=== PATIENT | female | born 1990 | race African-American/Black ===

== ENCOUNTER 2017-05-31 08:12 | Emergency (ER) | payer MEDICAID ==
[~2017-05-31] VITALS: Ht 167.6 cm; Wt 93.4 kg
[2017-05-31 08:26] VITALS: BP 152/98
[2017-05-31] MEDS ORDERED: cefTRIAXone SOD 1,000 MG VL IM ONE (08:45)
[2017-05-31 09:55] LABS: Vaginal RBC Rare; Vaginal Trichomonas Not Present; Vaginal WBC Moderate; Vaginal Yeast Moderate
[2017-05-31 09:56] LABS: Vaginal Bacteria Moderate; Vaginal Clue Cells Few; Vaginal Epithelial Cells Many
== END 2017-05-31 09:12 | disposition home or self-care (01) ==
LOC: ER 08:12
DX: K04.7 Periapical abscess without sinus (principal); F17.210 Nicotine dependence, cigarettes, uncomplicated; Z20.2 Contact with and (suspected) exposure to infections with a predominantly sexual mode of transmission
CPT/HCPCS: 87210; 96372; 96374; 99284; J0696; 81002

== ENCOUNTER 2018-07-15 23:15 | Emergency (ER) | payer MEDICAID ==
[~2018-07-15] VITALS: Ht 167.6 cm; Wt 99.8 kg
[2018-07-16 03:38] VITALS: BP 135/62
== END 2018-07-16 05:30 | disposition home or self-care (01) ==
LOC: ER 23:19
DX: S16.1XXA Strain of muscle, fascia and tendon at neck level, initial encounter (principal); S39.012A Strain of muscle, fascia and tendon of lower back, initial encounter; R51 Headache; M62.838 Other muscle spasm; F17.210 Nicotine dependence, cigarettes, uncomplicated; Z87.440 Personal history of urinary (tract) infections; V43.52XA Car driver injured in collision with other type car in traffic accident, initial encounter; Y93.89 Activity, other specified; Y92.488 Other paved roadways as the place of occurrence of the external cause; Y99.8 Other external cause status
CPT/HCPCS: 70450; 72125; 72131; 81002; 81025

== ENCOUNTER 2018-07-28 07:22 | Emergency (ER) | payer MEDICAID ==
[~2018-07-28] VITALS: Ht 167.6 cm; Wt 99.8 kg
[2018-07-28 07:52] VITALS: BP 155/86
== END 2018-07-28 08:08 | disposition home or self-care (01) ==
LOC: ER 07:22
DX: J02.9 Acute pharyngitis, unspecified (principal); R19.7 Diarrhea, unspecified; Z87.440 Personal history of urinary (tract) infections; F17.210 Nicotine dependence, cigarettes, uncomplicated